=== PATIENT | female | born 1995 | race African-American/Black ===

== ENCOUNTER 2019-01-20 09:40 | Emergency (ER) | payer OTHER, SELFPAY ==
[2019-01-20 10:49] LABS: Absolute Lymphocytes (CBC) 2.1 K/uL (0.7-4.9); Absolute Monocytes 0.7 K/uL (0.1-1.3); Absolute Neutrophil 3.4 K/uL (1.8-8.0); Basophils % 0.5 % (0-1.3); Eosinophils % 0.9 % (0-4.4); Hematocrit 39.7 % (36.0-45.0); Lymphocytes % 33.7 % (15.3-44.8); Monocytes % 11.3 % (3.3-12.3)
[2019-01-20 10:53] LABS: BUN Blood Urea Nitrogen 12 mg/dL (7-18); Bicarbonate 27 mmol/L (21-32); Glucose Level 91 mg/dL (74-106); Potassium 3.9 mmol/L (3.5-5.1); Sodium Level 141 mmol/L (136-145)
--- NOTE | 2019-01-20 11:50 | ER ---
Nurse's Notes [facility] Name: Rhina Mchugh Age: 23 yrs Sex: Female : 1995 Arrival Date: 01/20/2019 Time: 09:43 Bed 20 Private MD: Diagnosis: Right breast pain Presentation: 01/20 09:48 Presenting complaint: Patient states: intermittent CP, headaches and R shoulder pain x ss 6 days. Transition of care: patient was not received from another setting of care. Onset of symptoms was January 15, 2019. Risk Assessment: Do you want to hurt yourself or someone else? Patient reports no desire to harm self or others. Initial Sepsis Screen: Does the patient meet any 2 criteria? No. Patient's initial sepsis screen is negative. Does the patient have a suspected source of infection? No. Patient's initial sepsis screen is negative. Care prior to arrival: None. 09:48 Method Of Arrival: Ambulatory ss 09:48 Acuity: BRIGHT 3 ss Triage Assessment: 09:48 General: Appears uncomfortable, obese, well groomed, well developed, Behavior is calm, sv cooperative, appropriate for age. Pain: Complains of pain in anterior aspect of right upper chest, anterior aspect of left upper chest, anterior aspect of right shoulder and posterior aspect of right shoulder Pain currently is 4 out of 10 on a pain scale. Pain began Thursday Is continuous, Noted to be guarding, resistant to movement. Neuro: Level of Consciousness is awake, alert, obeys commands, Oriented to person, place, time, situation, Moves all extremities. Full function Gait is steady, Speech is normal. Cardiovascular: Heart tones S1 S2 present. Cardiovascular: Rhythm is sinus rhythm. Respiratory: Airway is patent Respiratory effort is even, unlabored, Respiratory pattern is regular, symmetrical, Breath sounds are clear bilaterally. Derm: Skin is pink, warm \T\ dry. Historical: - Allergies: 09:49 No Known Allergies; ss - Home Meds: 09:49 None [Active]; ss - PMHx: 09:49 None; ss - PSHx: 09:49 None; ss - Immunization history:: Adult Immunizations up to date. - Social history:: Smoking status: Patient/guardian denies using tobacco. - Ebola Screening: : Patient denies exposure to infectious person Patient denies travel to an Ebola-affected area in the 21 days before illness onset. Screenin:50 Abuse screen: Denies threats or abuse. Denies injuries from another. Nutritional sv screening: No deficits noted. Tuberculosis screening: No symptoms or risk factors identified. Fall Risk None identified. Assessment: 11:01 Reassessment: Patient appears in no apparent distress at this time. No changes from sv previously documented assessment. Patient and/or family updated on plan of care and expected duration. Pain level reassessed. Patient is alert, oriented x 3, equal unlabored respirations, skin warm/dry/pink. 12:15 Reassessment: Patient appears in no apparent distress at this time. No changes from sv previously documented assessment. Patient and/or family updated on plan of care and expected duration. Pain level reassessed. Patient is alert, oriented x 3, equal unlabored respirations, skin warm/dry/pink. Vital Signs: 09:49 BP 122 / 70; Pulse 104; Resp 15; Temp 98.4(TE); Pulse Ox 100% on R/A; Weight 152.41 kg; sv Height 6 ft. 0 in. (182.88 cm); Pain 4/10; 11:01 BP 113 / 57; Pulse 75; Resp 15; Pulse Ox 100% ; sv 12:15 BP 128 / 81; Pulse 85; Resp 18; Temp 98.5; Pulse Ox 100% ; Pain 2/10; sv 09:49 Body Mass Index 45.57 (152.41 kg, 182.88 cm) sv ED Course: 09:43 Patient arrived in ED. as 09:44 Queenie Perez, RN is Primary Nurse. sv 09:49 Triage completed. ss 09:49 Arm band placed on right wrist. ss 09:50 Patient has correct armband on for positive identification. Placed in gown. Bed in low sv position. Call light in reach. hall monitor on. Pulse ox on. NIBP on. Door closed. Head of bed elevated. 09:51 Dennis Galeas MD is Attending Physician. kdr 09:51 EKG done, by ED staff, reviewed by Dennis Galeas MD. sv 10:36 Initial lab(s) drawn, by ri, sent to lab. Inserted saline lock: 22 gauge in right kj1 antecubital area, using aseptic technique. 11:00 Patient maintains SpO2 saturation greater than 95% on room air. sv 11:30 Pillow given. sv 12:15 No provider procedures requiring assistance completed. IV discontinued, intact, sv bleeding controlled, No redness/swelling at site. Pressure dressing applied. Administered Medications: No medications were administered Outcome: 11:49 Discharge ordered by . kdr 12:15 Patient left the ED. sv 12:15 Discharged to home ambulatory. sv 12:15 Condition: stable 12:15 Discharge instructions given to patient, Instructed on discharge instructions, follow up and referral plans. medication usage, Demonstrated understanding of instructions, follow-up care, medications, Prescriptions given X 2. Signatures: Queenie Perez RN RN sv Dennis Galeas MD MD kdr Martinez, Amelia as Smirch, Shelby, RN RN ss Deja York1 Corrections: (The following items were deleted from the chart) 10:59 09:49 Pulse 104bpm; Resp 15bpm; Pulse Ox 100% RA; Temp 98.4F Temporal; 152.41 kg; sv Height 6 ft. 0 in.; BMI: 45.5; Pain 4/10; ss
--- NOTE | 2019-01-20 11:50 | EDPHYS ---
Physician Documentation [facility] Name: Rhina Mchugh Age: 23 yrs Sex: Female : 1995 Arrival Date: 01/20/2019 Time: 09:43 Bed 20 Private MD: ED Physician Dennis Galeas HPI: 01/20 10:24 This 23 yrs old Black Female presents to ER via Ambulatory with complaints of Chest kdr Pain, Shoulder Pain, Headache. 10:24 The patient or guardian reports chest pain that is located primarily in the The patient kdr is actually c/o pain to the right breast that is intermittent and transient. It is also associated with right shoulder, neck and face pain that is intermittent as well. At the time of my initial exam, the patient was not having any significant pain anywhere.. The pain radiates to the right shoulder, right neck, right facial. Associated signs and symptoms: Pertinent positives: None. The chest pain is described as aching, sharp. Duration: The patient or guardian reports multiple episodes, that are intermittent, that wax and wane, with no pattern. Severity of pain: At its worst the pain was mild in the emergency department the pain is unchanged. The patient has not experienced similar symptoms in the past. The patient has not recently seen a physician. Historical: - Allergies: 09:49 No Known Allergies; ss - Home Meds: 09:49 None [Active]; ss - PMHx: 09:49 None; ss - PSHx: 09:49 None; ss - Immunization history:: Adult Immunizations up to date. - Social history:: Smoking status: Patient/guardian denies using tobacco. - Ebola Screening: : Patient denies exposure to infectious person Patient denies travel to an Ebola-affected area in the 21 days before illness onset. ROS: 10:24 Constitutional: Negative for fever, chills, and weight loss, Eyes: Negative for injury, kdr pain, redness, and discharge, ENT: Negative for injury, pain, and discharge, Neck: Negative for injury, pain, and swelling, Respiratory: Negative for shortness of breath, cough, wheezing, and pleuritic chest pain, Abdomen/GI: Negative for abdominal pain, nausea, vomiting, diarrhea, and constipation, Back: Negative for injury and pain, : Negative for injury, bleeding, discharge, and swelling, MS/Extremity: Negative for injury and deformity, Skin: Negative for injury, rash, and discoloration, Neuro: Negative for headache, weakness, numbness, tingling, and seizure activity. Psych: Negative for depression, anxiety, suicide ideation, homicidal ideation, and hallucinations, Allergy/Immunology: Negative for hives, rash, and allergies, Endocrine: Negative for neck swelling, polydipsia, polyuria, polyphagia, and marked weight changes, Hematologic/Lymphatic: Negative for swollen nodes, abnormal bleeding, and unusual bruising. 10:24 Cardiovascular: Positive for Right breast pain. Exam: 10:24 Constitutional: This is a well developed, well nourished patient who is awake, alert, kdr and in no acute distress. Head/Face: Normocephalic, atraumatic. Eyes: Pupils equal round and reactive to light, extra-ocular motions intact. Lids and lashes normal. Conjunctiva and sclera are non-icteric and not injected. Cornea within normal limits. Periorbital areas with no swelling, redness, or edema. Neck: Trachea midline, no thyromegaly or masses palpated, and no cervical lymphadenopathy. Supple, full range of motion without nuchal rigidity, or vertebral point tenderness. No Meningismus. Chest/axilla: Normal chest wall appearance and motion. Nontender with no deformity. No lesions are appreciated. no pain elicited in right breast at time of initial exam Cardiovascular: Regular rate and rhythm with a normal S1 and S2. No gallops, murmurs, or rubs. Normal PMI, no JVD. No pulse deficits. Respiratory: Lungs have equal breath sounds bilaterally, clear to auscultation and percussion. No rales, rhonchi or wheezes noted. No increased work of breathing, no retractions or nasal flaring. Abdomen/GI: Soft, non-tender, with normal bowel sounds. No distension or tympany. No guarding or rebound. No evidence of tenderness throughout. Back: No spinal tenderness. No costovertebral tenderness. Full range of motion. Skin: Warm, dry with normal turgor. Normal color with no rashes, no lesions, and no evidence of cellulitis. MS/ Extremity: Pulses equal, no cyanosis. Neurovascular intact. Full, normal range of motion. Neuro: Awake and alert, GCS 15, oriented to person, place, time, and situation. Cranial nerves II-XII grossly intact. Motor strength 5/5 in all extremities. Sensory grossly intact. Cerebellar exam normal. Normal gait. Psych: Awake, alert, with orientation to person, place and time. Behavior, mood, and affect are within normal limits. Vital Signs: 09:49 BP 122 / 70; Pulse 104; Resp 15; Temp 98.4(TE); Pulse Ox 100% on R/A; Weight 152.41 kg; sv Height 6 ft. 0 in. (182.88 cm); Pain 4/10; 11:01 BP 113 / 57; Pulse 75; Resp 15; Pulse Ox 100% ; sv 12:15 BP 128 / 81; Pulse 85; Resp 18; Temp 98.5; Pulse Ox 100% ; Pain 2/10; sv 09:49 Body Mass Index 45.57 (152.41 kg, 182.88 cm) sv MDM: 10:24 Data reviewed: vital signs, nurses notes. kdr 11:33 ED course: The patient remains stable in the ED. No focal reason as yet for new onset kdr of confusion. Will CT head to make certain that there is no intercranial source for AMS. 11:49 Patient medically screened. kdr 01/20 10:24 Order name: CBC with Diff kdr 01/20 10:24 Order name: Chem 7; Complete Time: 11:32 kdr 01/20 09:54 Order name: EKG; Complete Time: 09:54 sv 01/20 09:54 Order name: EKG - Nurse/Tech; Complete Time: 09:59 sv 01/20 12:11 Order name: Manual Differential EDMS Administered Medications: No medications were administered Disposition: 01/20/19 11:49 Discharged to Home. Impression: Right breast pain. - Condition is Stable. - Discharge Instructions: Breast Tenderness. - Prescriptions for Diclofenac Sodium 75 mg Oral Tablet Sustained Release - take 1 tablet by ORAL route 2 times per day; 30 tablet. Medrol (Mike) 4 mg Oral Tablets, Dose Pack - take 1 tablet by ORAL route as directed - follow package instructions; 1 packet. - Medication Reconciliation Form, Thank You Letter form. - Follow up: Private Physician; When: 2 - 3 days; Reason: If symptoms return, Further diagnostic work-up, Recheck today's complaints, Continuance of care, Re-evaluation by your physician. - Problem is new. - Symptoms are resolved. Signatures: Dispatcher [employer] Queenie Ayala, RN RN sv Dennis Galeas MD MD [facility] Christie Castrejon RN RN ss Corrections: (The following items were deleted from the chart) 12:15 11:49 01/20/2019 11:49 Discharged to Home. Impression: Right breast pain. Condition is sv Stable. Forms are Medication Reconciliation Form, Thank You Letter, Antibiotic Education, Prescription Opioid Use. Follow up: Private Physician; When: 2 - 3 days; Reason: If symptoms return, Further diagnostic work-up, Recheck today's complaints, Continuance of care, Re-evaluation by your physician. Problem is new. Symptoms are resolved. kdr
[2019-01-20 12:10] LABS: Anisocytosis 1+; Blood Morphology Comment NOTED (NOT SEEN); Hypochromasia 1+; Platelet Estimate ADEQ
--- NOTE | 2019-01-21 07:15 | EKG ---
Test Date: 2019-01-20 Test Time: 09:51:11 Florist Designer: CARLITA MEASUREMENT RESULTS: Intervals: Rate: 91 OK: 196 QRSD: 86 QT: 372 QTc: 457 [place]: P: 66 OK: 196 QRS: 15 T: 15 INTERPRETIVE STATEMENTS: Sinus rhythm with premature supraventricular complexes with junctional escape complexes Otherwise normal ECG No previous ECG available for comparison Electronically Signed On 01-21-19 07:11:49 CDT by Jv Wolff
== END 2019-01-20 12:15 | disposition home or self-care (01) ==
LOC: ER 09:40
DX: N64.4 Mastodynia (principal)
CPT/HCPCS: 36415; 80048; 85025; 93005; 99285

== ENCOUNTER 2020-03-13 21:37 | Emergency (ER) | payer SELFPAY ==
[2020-03-13] MEDS ORDERED: METHYLPREDNISOLONE 125 MG INJ ONE (22:17)
--- NOTE | 2020-03-13 23:23 | ER ---
Nurse's Notes [facility] Name: Rhina Mchugh Age: 24 yrs Sex: Female : 1995 Arrival Date: 03/13/2020 Time: 21:39 Bed 14 Private MD: Diagnosis: Chest pain, unspecified Presentation: 03/13 21:44 Coronavirus screen: Proceed with normal triage. Patient denies a cough. Patient denies ll1 shortness of breath or difficulty breathing. Patient denies measured and/or subjective temperature greater than 100.4F prior to today's visit. Patient denies travel on a cruise ship or to a country the [facility] currently lists as an affected area. Patient denies contact with known and/or suspected case of COVID-19. Ebola Screen: Patient denies travel to an Ebola-affected area in the 21 days before illness onset. Initial Sepsis Screen: Does the patient meet any 2 criteria? No. Patient's initial sepsis screen is negative. Risk Assessment: Do you want to hurt yourself or someone else? Patient reports no desire to harm self or others. Onset of symptoms was March 13, 2020. 21:44 Acuity: BRIGHT 3 ll1 21:44 Method Of Arrival: Ambulatory ll1 21:45 Chief complaint: Patient states: Mid chest pain for 1 day. Worse with laying down. ll1 22:00 Initial Sepsis Screen: Does the patient have a suspected source of infection? No. vc Patient's initial sepsis screen is negative. 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 - Social history:: Smoking status: Patient denies any tobacco usage or history of. Patient/guardian denies using alcohol, street drugs, tobacco products. Screenin:00 Abuse screen: Denies threats or abuse. Nutritional screening: No deficits noted. vc Tuberculosis screening: No symptoms or risk factors identified. Fall Risk None identified. Assessment: 22:00 General: Appears in no apparent distress. uncomfortable, obese, Behavior is vc cooperative, appropriate for age, anxious. Pain: Complains of pain in chest, right aspect of thyroid, left aspect of thyroid and suprasternal notch Pain does not radiate. Quality of pain is described as pressure, Pain began gradually, Aggravated by increased activity. Neuro: Level of Consciousness is awake, alert, obeys commands, Oriented to person, place, time, situation, Appropriate for age. Cardiovascular: Reports chest pain, Capillary refill < 3 seconds Patient's skin is warm and dry. Rhythm is sinus rhythm Chest pain is described as mild. Respiratory: Airway is patent Respiratory effort is even, unlabored, Respiratory pattern is regular, symmetrical. GI: No signs and/or symptoms were reported involving the gastrointestinal system. : No signs and/or symptoms were reported regarding the genitourinary system. 23:00 Reassessment: Patient appears in no apparent distress at this time. Patient and/or vc family updated on plan of care and expected duration. Pain level reassessed. Patient is alert, oriented x 3, equal unlabored respirations, skin warm/dry/pink. Patient states feeling better. Patient states symptoms have improved. Vital Signs: 21:44 BP 149 / 87; Pulse 51; Resp 18; Temp 98.8; Pulse Ox 97% ; Weight 149.69 kg; Height 5 ll1 ft. (152.40 cm); Pain 3/10; 23:00 BP 142 / 79; Pulse 92; Resp 18; Pulse Ox 99% on R/A; vc 21:44 Body Mass Index 64.45 (149.69 kg, 152.40 cm) ll1 ED Course: 21:39 Patient arrived in ED. cl3 21:44 Arm band placed on. ll1 21:45 Triage completed. ll1 21:47 Jay Jay Bravo PA is PHCP. jr8 21:47 Ulisses Martinez MD is Attending Physician. jr8 22:00 Patient has correct armband on for positive identification. Bed in low position. Call vc light in reach. Side rails up X 1. Pulse ox on. NIBP on. 22:07 Jo Romero RN is Primary Nurse. vc 22:14 Inserted saline lock: 20 gauge in right antecubital area, using aseptic technique. vc 22:44 XRAY Chest Pa And Lat (2 Views) In Process Unspecified. EDMS 23:23 No provider procedures requiring assistance completed. Patient maintains SpO2 vc saturation greater than 95% on room air. 23:50 IV discontinued, intact, bleeding controlled, No redness/swelling at site. Pressure vc dressing applied. Administered Medications: 22:16 Drug: SOLU-Medrol 125 mg Route: IVP; Site: right antecubital; vc 23:20 Follow up: Response: No adverse reaction vc 23:40 Drug: TORadol - Ketorolac 15 mg Route: IVP; Site: right antecubital; vc 23:45 Follow up: Response: No adverse reaction; Medication administered at discharge. vc Outcome: 23:22 Discharge ordered by MD. larsen 23:50 Discharged to home ambulatory. vc 23:50 Condition: good 23:50 Discharge instructions given to patient, Instructed on discharge instructions, follow up and referral plans. Demonstrated understanding of instructions, follow-up care. 23:51 Patient left the ED. vc Signatures: Dispatcher [employer] EDMS Jay Jay Bravo PA PA jrMeera Villasenor cl3 Jo Romero RN RN vc Farhana Pearson RN RN ll1
--- NOTE | 2020-03-13 23:23 | EDPHYS ---
Physician Documentation [facility] Name: Rhina Mcuhgh Age: 24 yrs Sex: Female : 1995 Arrival Date: 03/13/2020 Time: 21:39 Bed 14 Private MD: ED Physician Ulisses Martinez HPI: 03/13 22:49 This 24 yrs old Black Female presents to ER via Ambulatory with complaints of Chest jr8 Pain. 22:49 The patient or guardian reports chest pain that is located primarily in the substernal jr8 area. The pain does not radiate. Associated signs and symptoms: The patient has no apparent associated signs or symptoms. The chest pain is described as a pressure. Duration: The patient or guardian reports a single episode, that is still ongoing. Modifying factors: The symptoms are alleviated by nothing. the symptoms are aggravated by nothing. Severity of pain: At its worst the pain was mild in the emergency department the pain is unchanged. The patient has not experienced similar symptoms in the past. The patient has not recently seen a physician. Patient stated that she forgot to put her mask on and inhaled clorox. Stated that she has had chest tightness and throat tightness now . 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 - Social history:: Smoking status: Patient denies any tobacco usage or history of. Patient/guardian denies using alcohol, street drugs, tobacco products. ROS: 22:49 Eyes: Negative for injury, pain, redness, and discharge, ENT: Negative for injury, jr8 pain, and discharge, Neck: Negative for injury, pain, and swelling, Respiratory: Negative for shortness of breath, cough, wheezing, and pleuritic chest pain, Abdomen/GI: Negative for abdominal pain, nausea, vomiting, diarrhea, and constipation, Back: Negative for injury and pain, MS/Extremity: Negative for injury and deformity, Skin: Negative for injury, rash, and discoloration, Neuro: Negative for headache, weakness, numbness, tingling, and seizure. 22:49 Cardiovascular: Positive for chest pain, Negative for edema, orthopnea, palpitations, paroxysmal nocturnal dyspnea. Exam: 22:49 Eyes: Pupils equal round and reactive to light, extra-ocular motions intact. Lids and jr8 lashes normal. Conjunctiva and sclera are non-icteric and not injected. Cornea within normal limits. Periorbital areas with no swelling, redness, or edema. ENT: Nares patent. No nasal discharge, no septal abnormalities noted. Tympanic membranes are normal and external auditory canals are clear. Oropharynx with no redness, swelling, or masses, exudates, or evidence of obstruction, uvula midline. Mucous membranes moist. Neck: Trachea midline, no thyromegaly or masses palpated, and no cervical lymphadenopathy. Supple, full range of motion without nuchal rigidity, or vertebral point tenderness. No Meningismus. Cardiovascular: Regular rate and rhythm with a normal S1 and S2. No gallops, murmurs, or rubs. Normal PMI, no JVD. No pulse deficits. Respiratory: Lungs have equal breath sounds bilaterally, clear to auscultation and percussion. No rales, rhonchi or wheezes noted. No increased work of breathing, no retractions or nasal flaring. Abdomen/GI: Soft, non-tender, with normal bowel sounds. No distension or tympany. No guarding or rebound. No evidence of tenderness throughout. Back: No spinal tenderness. No costovertebral tenderness. Full range of motion. Skin: Warm, dry with normal turgor. Normal color with no rashes, no lesions, and no evidence of cellulitis. MS/ Extremity: Pulses equal, no cyanosis. Neurovascular intact. Full, normal range of motion. Neuro: Awake and alert, GCS 15, oriented to person, place, time, and situation. Cranial nerves II-XII grossly intact. Motor strength 5/5 in all extremities. Sensory grossly intact. Cerebellar exam normal. Normal gait. Vital Signs: 21:44 BP 149 / 87; Pulse 51; Resp 18; Temp 98.8; Pulse Ox 97% ; Weight 149.69 kg; Height 5 ll1 ft. (152.40 cm); Pain 3/10; 23:00 BP 142 / 79; Pulse 92; Resp 18; Pulse Ox 99% on R/A; vc 21:44 Body Mass Index 64.45 (149.69 kg, 152.40 cm) ll1 MDM: 21:47 Patient medically screened. jr8 23:21 Data reviewed: vital signs, nurses notes, EKG, radiologic studies, plain films. Data jr8 interpreted: Pulse oximetry: on room air is 97 %. Interpretation: normal. Counseling: I had a detailed discussion with the patient and/or guardian regarding: the historical points, exam findings, and any diagnostic results supporting the discharge/admit diagnosis, radiology results, the need for outpatient follow up, a family practitioner, to return to the emergency department if symptoms worsen or persist or if there are any questions or concerns that arise at home. Response to treatment: the patient's symptoms have markedly improved after treatment. ED course: Patient feeling better. No acute ECG or imaging finding. VS stable. Will d/c home to f/u with PCP. 03/13 22:01 Order name: XRAY Chest Pa And Lat (2 Views) [facility] 03/13 22:01 Order name: EKG - Nurse/Tech; Complete Time: 22:38 [facility] 03/13 22:16 Order name: IV Start; Complete Time: 22:16 vc Administered Medications: 22:16 Drug: SOLU-Medrol 125 mg Route: IVP; Site: right antecubital; vc 23:20 Follow up: Response: No adverse reaction vc 23:40 Drug: TORadol - Ketorolac 15 mg Route: IVP; Site: right antecubital; vc 23:45 Follow up: Response: No adverse reaction; Medication administered at discharge. Disposition: 03/14 01:20 Co-signature as Attending Physician, Ulisses Martinez MD. [facility] Disposition: 03/13/20 23:22 Discharged to Home. Impression: Chest pain, unspecified. - Condition is Stable. - Discharge Instructions: Nonspecific Chest Pain, Chemical Inhalation Injury, Adult. - Medication Reconciliation Form, Thank You Letter, Antibiotic Education, Prescription Opioid Use, Work release form form. - Follow up: Private Physician; When: 2 - 3 days; Reason: Recheck today's complaints, Continuance of care, Re-evaluation by your physician. - Problem is new. - Symptoms have improved. Signatures: Dispatcher [employer] EDMS Jay Jay Bravo PA PA jr8 Jo Romero RN RN Farhana Pearson RN RN [facility] Ulisses Martinez MD MD 7 Corrections: (The following items were deleted from the chart) 03/13 23:51 23:22 03/13/2020 23:22 Discharged to Home. Impression: Chest pain, unspecified. vc Condition is Stable. Forms are Medication Reconciliation Form, Thank You Letter, Antibiotic Education, Prescription Opioid Use. Follow up: Private Physician; When: 2 - 3 days; Reason: Recheck today's complaints, Continuance of care, Re-evaluation by your physician. Problem is new. Symptoms have improved. jr8
[2020-03-13] MEDS ORDERED: KETOROLAC 30 MG/ML INJ ONE (23:43)
[2020-03-13 23:58] VITALS: TEMP 98.8
[2020-03-13 23:59] VITALS: BP 142/79; O2SAT 99
--- NOTE | 2020-03-14 08:37 | RAD REPORT ---
EXAM DESCRIPTION: RAD - Chest Pa And Lat (2 Views) - 03/13/2020 10:46 pm CLINICAL HISTORY: CHEST PAIN Chest pain. COMPARISON: No comparisons FINDINGS: The lungs are clear. The heart is normal in size. No displaced fractures. IMPRESSION: No acute or concerning finding suspected.
--- NOTE | 2020-03-14 20:59 | EKG ---
Test Date: 2020-03-13 Test Time: 22:34:27 Public Health Analyst: JESSI MEASUREMENT RESULTS: Intervals: Rate: 91 NV: 198 QRSD: 86 QT: 372 QTc: 457 [place]: P: 70 NV: 198 QRS: 42 T: 41 INTERPRETIVE STATEMENTS: Sinus rhythm with frequent premature ventricular complexes Otherwise normal ECG Compared to ECG 03/13/2020 22:33:38 No significant changes Electronically Signed On 03-14-20 20:57:03 CDT by Jv Wolff
--- NOTE | 2020-03-14 20:59 | EKG ---
Test Date: 2020-03-13 Test Time: 22:34:54 Geomatics Professor: JESSI MEASUREMENT RESULTS: Intervals: Rate: 93 IA: 196 QRSD: 90 QT: 388 QTc: 482 [place]: P: 64 IA: 196 QRS: 29 T: 37 INTERPRETIVE STATEMENTS: Sinus rhythm with frequent premature ventricular complexes Prolonged QT Abnormal ECG Compared to ECG 03/13/2020 22:34:27 Prolonged QT interval now present Electronically Signed On 03-14-20 20:57:02 CDT by Jv Wolff
--- NOTE | 2020-03-14 20:59 | EKG ---
Test Date: 2020-03-13 Test Time: 22:33:38 [place] Edge Operator: JESSI MEASUREMENT RESULTS: Intervals: Rate: 90 NV: 194 QRSD: 92 QT: 386 QTc: 472 [place]: P: 77 NV: 194 QRS: 41 T: 34 INTERPRETIVE STATEMENTS: Sinus rhythm with frequent premature ventricular complexes Otherwise normal ECG Compared to ECG 01/20/2019 09:51:11 Ventricular premature complex(es) now present Atrial premature complex(es) no longer present Junctional escape complex(es) no longer present Electronically Signed On 03-14-20 20:57:03 CDT by Jv Wolff
== END 2020-03-13 23:51 | disposition home or self-care (01) ==
LOC: ER 21:37
DX: R07.9 Chest pain, unspecified (principal)
CPT/HCPCS: 93005 ×3; 71046; 96375; 96374; 99285; J2930

== ENCOUNTER 2020-09-07 02:00 | Emergency (ER) | payer SELFPAY ==
[2020-09-07 02:55] LABS: Protime INR 1.16
[2020-09-07 02:57] LABS: Absolute Lymphocytes (CBC) 1.9 K/uL (0.7-4.9); Hematocrit 40.4 % (36.0-45.0); Lymphocytes % 24.3 % (15.3-44.8); MPV 8.4 fL (7.6-11.3); RBC Red Blood Cell Count 5.44 M/uL (3.86-4.86)
[2020-09-07] MEDS ORDERED: ONDANSETRON 4 MG/2 ML VIAL ONE (02:57)
[2020-09-07] MEDS ORDERED: MORPHINE 2 MG/ML SYR ONE (02:57)
[2020-09-07 03:09] LABS: ALT/SGPT 26 U/L (12-78); AST/SGOT 24 U/L (15-37); Albumin 3.6 g/dL (3.4-5.0); Alkaline Phosphatase 70 U/L (45-117); BUN Blood Urea Nitrogen 14 mg/dL (7-18); Bicarbonate 29 mmol/L (21-32); Bilirubin Direct 0.2 mg/dL (0-0.2); Bilirubin Total 0.5 mg/dL (0.2-1.0); Glucose Level 94 mg/dL (74-106); Lipase 109 U/L (73-393); Magnesium 2.1 mg/dL (1.8-2.4); NT PRO-BNP 106 pg/mL (<125); Potassium 3.6 mmol/L (3.5-5.1); Protein, Total 7.7 g/dL (6.4-8.2); Sodium Level 140 mmol/L (136-145); Troponin (Emerg Dept Use Only) < 0.02 ng/mL (0.0-0.045)
[2020-09-07 03:31] LABS: Urine Blood NEGATIVE (NEG); Urine Glucose NEGATIVE (NEG); Urine Protein NEGATIVE (NEG); Urine Specific Gravity 1.015 (1.005-1.030)
[2020-09-07 03:35] LABS: Barbiturates NEGATIVE (NEGATIVE); Benzodiazepines NEGATIVE (NEGATIVE); Cocaine NEGATIVE (NEGATIVE); METHAMPHETAM NEGATIVE (NEGATIVE); Methadone NEGATIVE (NEGATIVE); Opiates NEGATIVE (NEGATIVE); Phencyclidine NEGATIVE (NEGATIVE); THC Cannibis NEGATIVE (NEGATIVE)
--- NOTE | 2020-09-07 05:16 | EDPHYS ---
Physician Documentation [facility] Name: Rhina Mchugh Age: 25 yrs Sex: Female : 1995 Arrival Date: 09/07/2020 Time: 02:04 Bed 8 Private MD: ED Physician Ulisses Martinez HPI: 09/07 02:30 This 25 yrs old Black Female presents to ER via Unassigned with complaints of Chest mh7 Pain. 02:30 The patient or guardian reports chest pain that is located primarily in the anterior mh7 chest wall, left. The pain does not radiate. Associated signs and symptoms: Pertinent positives: abdominal pain, Pertinent negatives: cough, diaphoresis, dizziness, headache, lower extremity pain, lower extremity swelling, lightheadedness, nausea, near syncope, palpitations, recent travel, shortness of breath, syncope, vomiting. The chest pain is described as a pressure. Duration: The patient or guardian reports multiple episodes, that are intermittent, that wax and wane, with no pattern. Modifying factors: The symptoms are alleviated by nothing. the symptoms are aggravated by nothing. Severity of pain: At its worst the pain was moderate yesterday, in the emergency department the pain is unchanged. [facility] PHYSICIAN: 02:38 LMP 08/27/2020 rv Historical: - Allergies: 02:35 No Known Allergies; rv - Home Meds: 02:35 None [Active]; rv - PMHx: 02:35 None; rv - PSHx: 02:35 None; rv - Immunization history:: Adult Immunizations up to date. - Social history:: Smoking status: Patient denies any tobacco usage or history of. ROS: 02:32 Constitutional: Negative for fever, chills, and weight loss, Eyes: Negative for injury, mh7 pain, redness, and discharge, ENT: Negative for injury, pain, and discharge, Neck: Negative for injury, pain, and swelling, Respiratory: Negative for shortness of breath, cough, wheezing, and pleuritic chest pain, Back: Negative for injury and pain, : Negative for injury, bleeding, discharge, and swelling, MS/Extremity: Negative for injury and deformity, Skin: Negative for injury, rash, and discoloration, Neuro: Negative for headache, weakness, numbness, tingling, and seizure, Psych: Negative for depression, anxiety, suicide ideation, homicidal ideation, and hallucinations, Allergy/Immunology: Negative for hives, rash, and allergies, Endocrine: Negative for neck swelling, polydipsia, polyuria, polyphagia, and marked weight changes, Hematologic/Lymphatic: Negative for swollen nodes, abnormal bleeding, and unusual bruising. Exam: 02:32 Constitutional: This is a well developed, well nourished patient who is awake, alert, mh7 and in no acute distress. Head/Face: Normocephalic, atraumatic. Eyes: Pupils equal round and reactive to light, extra-ocular motions intact. Lids and lashes normal. Conjunctiva and sclera are non-icteric and not injected. Cornea within normal limits. Periorbital areas with no swelling, redness, or edema. Neck: Trachea midline, no thyromegaly or masses palpated, and no cervical lymphadenopathy. Supple, full range of motion without nuchal rigidity, or vertebral point tenderness. No Meningismus. Chest/axilla: Normal chest wall appearance and motion. Nontender with no deformity. No lesions are appreciated. Cardiovascular: Regular rate and rhythm with a normal S1 and S2. No gallops, murmurs, or rubs. Normal PMI, no JVD. No pulse deficits. Respiratory: Lungs have equal breath sounds bilaterally, clear to auscultation and percussion. No rales, rhonchi or wheezes noted. No increased work of breathing, no retractions or nasal flaring. Abdomen/GI: Soft, non-tender, with normal bowel sounds. No distension or tympany. No guarding or rebound. No evidence of tenderness throughout. Back: No spinal tenderness. No costovertebral tenderness. Full range of motion. Skin: Warm, dry with normal turgor. Normal color with no rashes, no lesions, and no evidence of cellulitis. MS/ Extremity: Pulses equal, no cyanosis. Neurovascular intact. Full, normal range of motion. Neuro: Awake and alert, GCS 15, oriented to person, place, time, and situation. Cranial nerves II-XII grossly intact. Motor strength 5/5 in all extremities. Sensory grossly intact. Cerebellar exam normal. Normal gait. Psych: Awake, alert, with orientation to person, place and time. Behavior, mood, and affect are within normal limits. 05:24 ECG was reviewed by the Attending Physician. mh7 Vital Signs: 02:29 BP 132 / 78; Pulse 88; Resp 18; Temp 98.4; Pulse Ox 98% ; Weight 149.69 kg; Height 6 rv ft. 5 in. (195.58 cm); Pain 8/10; 03:30 BP 128 / 72; Pulse 85; Resp 18; Pulse Ox 98% on R/A; wh 05:00 BP 124 / 60; Pulse 82; Resp 18; Pulse Ox 98% ; wh 02:29 Body Mass Index 39.13 (149.69 kg, 195.58 cm) rv MDM: 05:12 Differential diagnosis: acute myocardial infarction, acute pericarditis, anxiety, chest 7 wall pain, costochondritis, pancreatitis, pneumonia, pneumothorax, pulmonary embolus. HEART Score: History: Moderately Suspicious (1), ECG: Normal (0), Age: < or = 45 years (0), Risk Factors: No Risk Factors Known (0), Troponin: < or = 1 x Normal Limit (0), Total Score = 1. Data reviewed: vital signs, nurses notes, old medical records, lab test result(s), cardiac enzymes, CBC, electrolytes, urinalysis, urine drug screen, UPT: EKG, radiologic studies, CT scan, plain films. Data interpreted: Pulse oximetry: on room air is 98 %. Interpretation: normal. Counseling: I had a detailed discussion with the patient and/or guardian regarding: the historical points, exam findings, and any diagnostic results supporting the discharge/admit diagnosis, lab results, radiology results, the need for outpatient follow up, to return to the emergency department if symptoms worsen or persist or if there are any questions or concerns that arise at home. Response to treatment: the patient's symptoms have resolved after treatment, the patient's blood pressure is in an acceptable range, mental status has returned to baseline, the patient no longer shows bradycardia, the patient is not short of breath, the patient is not tachycardic, the patient's pain is gone, the patient's temperature has normalized. 05:15 Patient medically screened. [facility] 09/07 02:19 Order name: Basic Metabolic Panel; Complete Time: 03:20 [facility] 09/07 02:19 Order name: CBC with Diff; Complete Time: 03:06 [facility] 09/07 02:19 Order name: LFT's; Complete Time: 03:20 [facility] 09/07 02:19 Order name: Magnesium; Complete Time: 03:20 [facility] 09/07 02:19 Order name: NT PRO-BNP; Complete Time: 03:20 [facility] 09/07 02:19 Order name: PT-INR; Complete Time: 03:06 [facility] 09/07 02:19 Order name: Troponin (emerg Dept Use Only); Complete Time: 03:20 [facility] 09/07 02:19 Order name: XRAY Chest (1 view) [facility] 09/07 02:19 Order name: Lipase; Complete Time: 03:20 [facility] 09/07 02:19 Order name: UDS; Complete Time: 03:56 [facility] 09/07 03:22 Order name: CT Chest For PE Angio [facility] 09/07 03:25 Order name: Urine Dipstick--Ancillary (enter results); Complete Time: 03:56 [facility] 09/07 03:25 Order name: Urine --Ancillary (enter results); Complete Time: 03:56 [facility] 09/07 04:47 Order name: D-Dimer; Complete Time: 05:07 09/07 02:19 Order name: EKG; Complete Time: 02:20 [facility] 09/07 02:19 Order name: Cardiac monitoring; Complete Time: 02:30 09/07 02:19 Order name: EKG - Nurse/Tech; Complete Time: 02:30 09/07 02:19 Order name: IV Saline Lock; Complete Time: 02:30 [facility] 09/07 02:19 Order name: Labs collected and sent; Complete Time: 02:30 [facility] 09/07 02:19 Order name: O2 Per Protocol; Complete Time: 02:30 09/07 02:19 Order name: O2 Sat Monitoring; Complete Time: 02:30 09/07 02:19 Order name: Urine Dipstick-Ancillary (obtain specimen); Complete Time: 02:29 [facility] 09/07 02:19 Order name: Urine Test (obtain specimen); Complete Time: 05:12 [facility] 09/07 03:22 Order name: CT Abd/Pelvis - IV Contrast Only 7 EC:24 Rate is 83 beats/min. Rhythm is regular, Normal Sinus Rhythm. QRS [place] is Normal. ID mh7 interval is normal. QRS interval is normal. QT interval is normal. No Q waves. T waves are Normal. No ST changes noted. Clinical impression: Normal ECG. Administered Medications: 02:47 Drug: morphine 2 mg {Note: rass 0.} Route: IVP; Site: right antecubital; rv 05:12 Follow up: Response: No adverse reaction; Pain is decreased; RASS: Alert and Calm (0) 02:47 Drug: Zofran (Ondansetron) 4 mg Route: IVP; Site: right antecubital; rv 05:12 Follow up: Response: No adverse reaction; Nausea is decreased Disposition: 09/07/20 05:15 Discharged to Home. Impression: Chest pain, unspecified. - Condition is Stable. - Discharge Instructions: Nonspecific Chest Pain, [id number]. - Medication Reconciliation Form, Thank You Letter, Antibiotic Education, Prescription Opioid Use form. - Follow up: Private Physician; When: 1 - 2 days; Reason: Worsening of condition, Recheck today's complaints, Continuance of care, Re-evaluation by your physician. - Problem is new. - Symptoms have improved. Signatures: Dispatcher [employer] EDMS Aysha Flores Yair Lutz RN RN Ulisses Ortiz MD MD mh7 Corrections: (The following items were deleted from the chart) 05:27 05:15 09/07/2020 05:15 Discharged to Home. Impression: Chest pain, unspecified. Condition is Stable. Forms are Medication Reconciliation Form, Thank You Letter, Antibiotic Education, Prescription Opioid Use. Follow up: Private Physician; When: 1 - 2 days; Reason: Worsening of condition, Recheck today's complaints, Continuance of care, Re-evaluation by your physician. Problem is new. Symptoms have improved. mh7
--- NOTE | 2020-09-07 05:16 | ER ---
Nurse's Notes [facility] Name: Rhina Mchugh Age: 25 yrs Sex: Female : 1995 Arrival Date: 09/07/2020 Time: 02:04 Bed 8 Private MD: Diagnosis: Chest pain, unspecified Presentation: 09/07 02:29 Chief complaint: Patient states: belly pains last Thursday, vomited once, chest pain rv today, radiates to left shoulder. denies cough, fever, congestion. Coronavirus screen: Client denies travel out of the [place] in the last 14 days. The client reports previous COVID testing was negative. Date of collection: September 06, 2020. Ebola Screen: No symptoms or risks identified at this time. Initial Sepsis Screen: Does the patient meet any 2 criteria? No. Patient's initial sepsis screen is negative. Does the patient have a suspected source of infection? No. Patient's initial sepsis screen is negative. Risk Assessment: Do you want to hurt yourself or someone else? Patient reports no desire to harm self or others. Onset of symptoms was September 06, 2020. 02:29 Method Of Arrival: Ambulatory rv 02:29 Acuity: BRIGHT 3 rv Triage Assessment: 02:35 General: Appears comfortable, Behavior is calm, cooperative. Pain: Complains of pain in rv chest. EENT: No signs and/or symptoms were reported regarding the EENT system. Neuro: Level of Consciousness is awake, alert, obeys commands, Oriented to person, place, time, situation. Cardiovascular: Patient's skin is warm and dry. Rhythm is sinus rhythm with unifocal PVCs. Cardiovascular: Chest pain is described as Pain is 8 out of 10 on a pain scale. quality is pressure, sharp, is located in anterior chest wall radiates to left shoulder began 1 day ago. Respiratory: Airway is patent Respiratory effort is even, unlabored, Breath sounds are clear bilaterally. Derm: Skin is intact. FOREIGN LANGUAGE STENOGRAPHER: 02:38 LMP 08/27/2020 rv Historical: - Allergies: 02:35 No Known Allergies; rv - Home Meds: 02:35 None [Active]; rv - PMHx: 02:35 None; rv - PSHx: 02:35 None; rv - Immunization history:: Adult Immunizations up to date. - Social history:: Smoking status: Patient denies any tobacco usage or history of. Screenin:38 Abuse screen: Denies threats or abuse. Denies injuries from another. Nutritional rv screening: No deficits noted. Tuberculosis screening: No symptoms or risk factors identified. Fall Risk None identified. Assessment: 02:38 Pain: Pain radiates to left shoulder Pain began suddenly. rv 03:30 Reassessment: Patient appears in no apparent distress at this time. Patient and/or wh family updated on plan of care and expected duration. Pain level reassessed. Patient is alert, oriented x 3, equal unlabored respirations, skin warm/dry/pink. 05:00 Reassessment: Patient appears in no apparent distress at this time. Patient and/or wh family updated on plan of care and expected duration. Pain level reassessed. Patient is alert, oriented x 3, equal unlabored respirations, skin warm/dry/pink. Vital Signs: 02:29 BP 132 / 78; Pulse 88; Resp 18; Temp 98.4; Pulse Ox 98% ; Weight 149.69 kg; Height 6 rv ft. 5 in. (195.58 cm); Pain 8/10; 03:30 BP 128 / 72; Pulse 85; Resp 18; Pulse Ox 98% on R/A; wh 05:00 BP 124 / 60; Pulse 82; Resp 18; Pulse Ox 98% ; wh 02:29 Body Mass Index 39.13 (149.69 kg, 195.58 cm) rv ED Course: 02:04 Patient arrived in ED. cl3 02:06 Yair Lutz RN is Primary Nurse. rv 02:06 Ulisses Martinez MD is Attending Physician. mh7 02:15 Initial lab(s) drawn, by ky, sent to lab. Inserted saline lock: 20 gauge in right rv antecubital area, using aseptic technique. Blood collected. Patient maintains SpO2 saturation greater than 95% on room air. 02:34 Triage completed. rv 02:37 Arm band placed on right wrist. Patient placed in the treatment room, on a stretcher, rv Patient notified of wait time. 02:38 Patient has correct armband on for positive identification. monitoring manager on. Pulse rv ox on. NIBP on. 02:54 XRAY Chest (1 view) In Process Unspecified. EDMS 04:03 CT Chest For PE Angio In Process Unspecified. EDMS 04:03 CT Abd/Pelvis - IV Contrast Only In Process Unspecified. EDMS 05:26 No provider procedures requiring assistance completed. IV discontinued, intact, bleeding controlled, No redness/swelling at site. Administered Medications: 02:47 Drug: morphine 2 mg {Note: rass 0.} Route: IVP; Site: right antecubital; rv 05:12 Follow up: Response: No adverse reaction; Pain is decreased; RASS: Alert and Calm (0) 02:47 Drug: Zofran (Ondansetron) 4 mg Route: IVP; Site: right antecubital; rv 05:12 Follow up: Response: No adverse reaction; Nausea is decreased Outcome: 05:15 Discharge ordered by MD. chacko 05:27 Discharged to home ambulatory, with family. 05:27 Condition: stable 05:27 Discharge instructions given to patient, family, Instructed on discharge instructions, follow up and referral plans. POC Demonstrated understanding of instructions, follow-up care, POC 05:27 Patient left the ED. Signatures: Dispatcher [employer] EDKY Aysha Flores Yair Lutz, RN RN Meera Grubbs cl3 Ulisses Martinez MD MD mh7
[2020-09-07 05:32] VITALS: TEMP 98.4; O2SAT 98
[2020-09-07 05:34] VITALS: BP 124/60
--- NOTE | 2020-09-07 12:59 | RAD REPORT ---
EXAM DESCRIPTION: CT Abdomen and Pelvis With Intravenous Contrast CLINICAL HISTORY: The patient is 25 years old and is Female; ABD PAIN TECHNIQUE: Axial computed caren graphy images of the abdomen and pelvis with intravenous contrast. Sagittal and coronal reformatted images were created and reviewed. This CT exam was performed using one or more of the following do se reduction techniques: automated exposure control, adjustment of the mA and/or kV according to pa tient size, and/or use of iterative reconstruction technique. COMPARISON: No relevant prior studies available. FINDINGS: Lung bases: Unremarkable. No mass. No consolidation. ABDOMEN: Liver: Unremarkable. No mass. Gallbladder and bile ducts: Unremarkable. No calcified stones. No ductal dilation. Pancreas: No findings to suggest acute pancreatitis. No mass visualized. No ductal dilation. Spleen: Unremarkable. No splenomegaly. Adrenals: Unremarkable. No mass. Kidneys and ureters: Unremarkable. No solid mass. No hydronephrosis. Stomach and bowel: No bowel dilatation or obstruction. No bowel wall thickening. PELVIS: Appendix: The visualized appendix is normal. No pericecal inflammation to suggest acute appendici tis. Bladder: Unremarkable. No mass. Reproductive: Unremarkable as visualized. ABDOMEN and PELVIS: Intraperitoneal space: Unremarkable. No free air. No significant fluid collection. Bones/joints: Scattered vertebral osteophytes. No acute fracture. No dislocation. Soft tissues: Unremarkable. Vasculature: Unremarkable. No abdominal aortic aneurysm. Lymph nodes: No pathologically enlarged lymph nodes. IMPRESSION: No acute obstructive or inflammatory process identified. Normal appendix. Electronically signed by: Queenie Royal MD 09/07/2020 4:30 AM SUPERVISOR DIE CASTING Due to temporary technical issues with the PACS/Fluency reporting system, reports are being signed by the in house radiologists without review as a courtesy to insure prompt reporting. The interpreting radiologist is fully responsible for the content of the report.
--- NOTE | 2020-09-07 13:08 | RAD REPORT ---
EXAM DESCRIPTION: CT Angiography Chest With Intravenous Contrast CLINICAL HISTORY: The patient is 25 years old and is Female; CHEST PAIN TECHNIQUE: Axial computed tomographic angiography images of the chest with intravenous contrast. S agittal and coronal reformatted images were created and reviewed. This CT exam was performed using one or more of the following dose reduction techniques: automated exposure control, adjustment of t he mA and/or kV according to patient size, and/or use of iterative reconstruction technique. MIP re constructed images were created and reviewed. COMPARISON: CXR August 18, 2020. FINDINGS: Pulmonary arteries: Evaluation for pulmonary thromboembolism is limited due to lack of a dequate IV contrast density in the pulmonary arteries. ZC=451 in the main pulmonary outflow tract. PE cannot be excluded. Aorta: No acute findings. No thoracic aortic aneurysm. Lungs: No pulmonary consolidation or groundglass opacities. Linear atelectasis or scarring in the lingula. Pleural space: No pleural effusion or pneumothorax. Heart: Mild cardiomegaly. No significant pericardial effusion. No evidence of RV dysfunction. Bones/joints: Mild thoracic scoliosis. No acute fracture visualized. No dislocation. Soft tissues: Unremarkable. Lymph nodes: Unremarkable. No enlarged lymph nodes. IMPRESSION: 1. Evaluation for pulmonary thromboembolism is limited due to lack of adequate IV cont rast density in the pulmonary arteries. EA=234 in the main pulmonary outflow tract. PE cannot be excl uded. 2. No pulmonary consolidation or groundglass opacities. 3. Mild cardiomegaly. Electronically signed by: Queenie Royal MD 09/07/2020 4:26 AM SHIPYARD PAINTER HELPER Due to temporary technical issues with the PACS/Fluency reporting system, reports are being signed by the in house radiologists without review as a courtesy to insure prompt reporting. The interpreting radiologist is fully responsible for the content of the report.
--- NOTE | 2020-09-07 13:13 | RAD REPORT ---
EXAM DESCRIPTION: XR CHEST 1 VIEW CLINICAL HISTORY: CHEST PAIN COMPARISON: None. FINDINGS: Cardiac silhouette is normal in size. Lungs are clear without consolidation, atelectasis, mass or edema. There is no pleural effusion. There is no pneumothorax. There are no acute osseous fin dings. IMPRESSION: Clear lungs. Electronically signed by: Ronny Kilpatrick MD 09/07/2020 3:45 AM SENIOR FINANCIAL REPORTING ACCOUNTANT Due to temporary technical issues with the PACS/Fluency reporting system, reports are being signed by the in house radiologists without review as a courtesy to insure prompt reporting. The interpreting radiologist is fully responsible for the content of the report.
== END 2020-09-07 05:27 | disposition home or self-care (01) ==
LOC: ER 02:00
DX: R07.89 Other chest pain (principal)
CPT/HCPCS: 93005; 85025; 80048; 36415; 83735; 81025; 85610; 85379; 80076; 80307 ×8; 81003; 84484; 83690; 83880; 71275; 74177; 71045; 96375; 96374; 99285; Q9967; J2270; J2405